=== PATIENT | male | born 1975 | race Caucasian/White ===

== ENCOUNTER 2019-08-18 12:30 | Inpatient (IN) | payer MEDICAID, OTHER ==
[~2019-08-18] VITALS: Ht 177.8 cm; Wt 138.5 kg
[2019-08-18 13:11] LABS: Urine Bacteria NONE SEEN /hpf (None Seen); Urine Blood Negative /uL (Negative); Urine Mucus FEW (None Seen); Urine Specific Gravity 1.021 (1.001-1.035); Urine WBC 1 /hpf (0 - 3)
[2019-08-18 13:31] LABS: Basophils # (auto) 0.1 uL; Basophils % (auto) 1.2 % (0.0-2.0); Eosinophils # (auto) 0.1 uL; Eosinophils % (auto) 1.5 % (0.0-7.0); Hematocrit 46.3 % (41.0-53.0); Hemoglobin 16.3 g/dL (13.5-17.5); Lymphocytes # (auto) 1.9 uL; Lymphocytes % (auto) 22.5 % (10.0-50.0); Mean Corpuscular Hemoglobin 33.3 pg (28.0-32.0); Mean Corpuscular Hgb Conc. 35.2 g/dL (32.0-36.0); Mean Corpuscular Volume 94.6 fL (80.0-100.0); Monocytes # (auto) 0.8 uL; Monocytes % (auto) 9.7 % (0.0-12.0); Neutrophils # (auto) 5.3 uL; Neutrophils % (auto) 65.1 % (37.0-80.0); Nucleated Red Blood Cells % 0.1 %; Platelet Count (auto) 197 10^3/uL (140-450); Red Blood Cells 4.89 10^6/uL (4.5-5.90); Red Cell Distribution Width 12.5 % (11.8-14.3); White Blood Cell 8.2 10^3/uL (4.4-10.8)
[2019-08-18 13:47] LABS: Albumin 3.8 g/dL (3.4-5.0); Anion Gap 5 (5-15); Blood Urea Nitrogen 12 mg/dL (7-18); Calcium 8.8 mg/dL (8.5-10.1); Carbon Dioxide 29 mmol/L (21-32); Chloride 104 mmol/L (98-107); Glucose 106 mg/dL (74-106); Potassium 3.8 mmol/L (3.5-5.1); Sodium 138 mmol/L (136-145)
[2019-08-18 13:49] LABS: Alanine Aminotransferase 32 U/L (16-61); Aspartate Aminotransferase 24 U/L (15-37); Blood Alcohol < 3.0 mg/dL (0-5); GFR African American 84 mL/min; GFR Non-African American 69 mL/min
[2019-08-18 13:52] LABS: INR 1.07 (0.9-1.15); Partial Thromboplastin Time 26.4 sec (23.64-32.05)
[2019-08-18 13:54] LABS: Alkaline Phosphatase 83 U/L (45-117); Bilirubin, Total 0.7 mg/dL (0.2-1.0); Total Protein 7.6 g/dL (6.4-8.2)
[2019-08-18] MEDS ORDERED: ASPirin 81 mg TAB PO ONE (16:00)
[2019-08-18] MEDS ORDERED: IOHEXOL 350 MG/ML 100ML IJ ONE (16:46)
[2019-08-18] MEDS ORDERED: TEMAZEPAM 15 MG CAP PO PRN (19:15)
[2019-08-18] MEDS ORDERED: NITROGLYCERIN 0.4 MG SL TAB SL PRN (19:15)
[2019-08-18] MEDS ORDERED: LACTULOSE 20Gm/30ML SOLN PO PRN (19:15)
[2019-08-18] MEDS ORDERED: PROMETHAZINE HCL 25 MG/ML 1ML IV PRN (19:15)
[2019-08-18] MEDS ORDERED: ACETAMINOPHEN 500 MG TAB PO PRN (19:15)
[2019-08-18] MEDS ORDERED: MORPHINE SULF INJ 2 MG/ML SYRINGE 1ML IV PRN (19:15)
[2019-08-18] MEDS ORDERED: traMADol HCL 50 MG TAB PO PRN (19:15)
[2019-08-18] MEDS ORDERED: THIAMINE 100mg/ml INJ (200mg/2ml VIAL) IV ONE (19:30)
[2019-08-18] MEDS ORDERED: chlordiazePOXIDE HCL 25 MG CAP PO PRN (19:30)
[2019-08-18 19:42] LABS: Alcohol, Urine < 3.0 mg/dL (0-5); Amphetamine Screen, Urine NEGATIVE (NEGATIVE); Barbiturate Scree,Urine NEGATIVE (NEGATIVE); Benzodiazephine Screen, Urine NEGATIVE (NEGATIVE); Cannabinoid Screen, Urine POSITIVE (NEGATIVE); Cocaine Screen, Urine NEGATIVE (NEGATIVE); Opiate Scree,Urine NEGATIVE (NEGATIVE); Phencyclidine Screen, Urine NEGATIVE (NEGATIVE)
[2019-08-18 19:45] VITALS: BP 140/95
[2019-08-18] MEDS: SODIUM CHLORIDE 0.9% 1,000 ML IV SCH (19:45)
[2019-08-18 22:00] VITALS: BP 140/95
[2019-08-18] MEDS: ATORVASTATIN 20 MG TAB PO SCH (22:06)
[2019-08-18] MEDS: METOPROLOL TARTRATE 25 MG TAB PO SCH (22:07)
[2019-08-19] MEDS: chlordiazePOXIDE HCL 5 MG CAP PO SCH ×5 (00:02→23:38)
[2019-08-19 06:00] VITALS: BP 125/82
[2019-08-19 07:49] LABS: Cholesterol 179 mg/dL (< 200)
[2019-08-19 07:52] LABS: HDL Cholesterol 53 mg/dL (40-59); LDL Cholesterol 119 mg/dL (< 100); Triglycerides 138 mg/dL (< 150)
[2019-08-19 08:05] VITALS: BP 140/95
[2019-08-19 09:25] VITALS: BP 127/75
[2019-08-19] MEDS: NITROGLYCERIN 0.2MG/HR TOPICAL PATCH TD SCH (10:00)
[2019-08-19] MEDS: THIAMINE 100mg/ml INJ (200mg/2ml VIAL) IV SCH (10:44)
[2019-08-19] MEDS: ASPirin 81 mg TAB PO SCH (10:45)
[2019-08-19] MEDS: PANTOPRAZOLE 40 MG TAB PO SCH (10:46)
[2019-08-19] MEDS: ENOXAPARIN SOD 40 MG/0.4 ML SYRINGE SC SCH (10:46)
[2019-08-19] MEDS: METOPROLOL TARTRATE 25 MG TAB PO SCH ×2 (10:46→21:30)
[2019-08-19] MEDS: SODIUM CHLORIDE 0.9% 1,000 ML IV SCH ×2 (10:56→23:54)
[2019-08-19 13:12] VITALS: BP 133/97
[2019-08-19 16:50] VITALS: BP 105/68
[2019-08-19] MEDS: ATORVASTATIN 20 MG TAB PO SCH (21:13)
[2019-08-19 22:00] VITALS: BP 141/81
[2019-08-20] VITALS (7 sets, daily range): BP systolic 122–142; BP diastolic 67–93
[2019-08-20] MEDS: chlordiazePOXIDE HCL 5 MG CAP PO SCH ×3 (05:24→18:23)
[2019-08-20] MEDS ORDERED: ADENOSINE IV STA (08:15)
[2019-08-20] MEDS ORDERED: GIVE UN DILUTED IV STA (08:15)
[2019-08-20] MEDS: THIAMINE 100mg/ml INJ (200mg/2ml VIAL) IV SCH (12:26)
[2019-08-20] MEDS: METOPROLOL TARTRATE 25 MG TAB PO SCH ×2 (12:27→22:06)
[2019-08-20] MEDS: ENOXAPARIN SOD 40 MG/0.4 ML SYRINGE SC SCH (12:27)
[2019-08-20] MEDS: ASPirin 81 mg TAB PO SCH (12:27)
[2019-08-20] MEDS: NITROGLYCERIN 0.2MG/HR TOPICAL PATCH TD SCH (12:28)
[2019-08-20] MEDS: PANTOPRAZOLE 40 MG TAB PO SCH (12:28)
[2019-08-20] MEDS: SODIUM CHLORIDE 0.9% 1,000 ML IV SCH (16:25)
[2019-08-20] MEDS: ATORVASTATIN 20 MG TAB PO SCH (22:06)
[2019-08-21] MEDS: chlordiazePOXIDE HCL 5 MG CAP PO SCH ×5 (00:03→23:58)
[2019-08-21] MEDS: SODIUM CHLORIDE 0.9% 1,000 ML IV SCH (04:10)
[2019-08-21 05:48] VITALS: BP 125/64
[2019-08-21 06:29] LABS: Basophils # (auto) 0 uL; Basophils % (auto) 0.4 % (0.0-2.0); Eosinophils # (auto) 0.1 uL; Eosinophils % (auto) 1.8 % (0.0-7.0); Hematocrit 41.6 % (41.0-53.0); Hemoglobin 14.8 g/dL (13.5-17.5); Lymphocytes # (auto) 1.6 uL; Lymphocytes % (auto) 20.5 % (10.0-50.0); Mean Corpuscular Hemoglobin 33.6 pg (28.0-32.0); Mean Corpuscular Hgb Conc. 35.7 g/dL (32.0-36.0); Mean Corpuscular Volume 94.2 fL (80.0-100.0); Monocytes # (auto) 0.8 uL; Monocytes % (auto) 10.2 % (0.0-12.0); Neutrophils # (auto) 5.2 uL; Neutrophils % (auto) 67.1 % (37.0-80.0); Nucleated Red Blood Cells % 0.1 %; Platelet Count (auto) 167 10^3/uL (140-450); Red Blood Cells 4.41 10^6/uL (4.5-5.90); Red Cell Distribution Width 12.6 % (11.8-14.3); White Blood Cell 7.7 10^3/uL (4.4-10.8)
[2019-08-21 06:42] LABS: INR 1.05 (0.9-1.15); Partial Thromboplastin Time 26.8 sec (23.64-32.05)
[2019-08-21 06:48] LABS: Calcium 8.2 mg/dL (8.5-10.1); Potassium 3.6 mmol/L (3.5-5.1)
[2019-08-21 06:51] LABS: BUN/Creatinine Ratio 10.8
[2019-08-21 08:00] VITALS: BP 146/80
[2019-08-21] MEDS: ENOXAPARIN SOD 40 MG/0.4 ML SYRINGE SC SCH (10:00)
[2019-08-21] MEDS: NITROGLYCERIN 0.2MG/HR TOPICAL PATCH TD SCH (10:00)
[2019-08-21] MEDS ORDERED: fentaNYL CITRATE 100 MCG/2 ML VL ONE (11:20)
[2019-08-21] MEDS ORDERED: MIDAZOLAM HCL 1MG/1ML-2 ML VIAL ONE (11:20)
[2019-08-21] MEDS ORDERED: SODIUM CHL 0.9% 0 ML ONE ×2 (11:20→14:28)
[2019-08-21] MEDS ORDERED: ANGIOMAX 250 MG VIAL IV ONE ×2 (11:20→14:27)
[2019-08-21] MEDS ORDERED: VERAPAMIL 2.5MG/ML INJ 2ML VIAL IV ONE (11:20)
[2019-08-21] MEDS ORDERED: LIDOCAINE 2%HCL (LOCAL ANESTH.) INJ 20ML MDV ONE (11:43)
[2019-08-21] MEDS ORDERED: IOHEXOL 350 MG/ML 100ML IJ ONE (11:43)
[2019-08-21 17:00] VITALS: BP 130/92
[2019-08-21] MEDS: ASPirin 81 mg TAB PO SCH (17:16)
[2019-08-21] MEDS: PANTOPRAZOLE 40 MG TAB PO SCH (17:16)
[2019-08-21] MEDS: METOPROLOL TARTRATE 25 MG TAB PO SCH ×2 (17:17→21:50)
[2019-08-21] MEDS: THIAMINE 100mg/ml INJ (200mg/2ml VIAL) IV SCH (17:17)
[2019-08-21 20:00] VITALS: BP 122/81
[2019-08-21 21:42] VITALS: BP 122/81
[2019-08-21] MEDS: ATORVASTATIN 20 MG TAB PO SCH (21:47)
[2019-08-22] MEDS: SODIUM CHLORIDE 0.9% 1,000 ML IV SCH (01:31)
[2019-08-22 05:35] VITALS: BP 126/82
[2019-08-22] MEDS: chlordiazePOXIDE HCL 5 MG CAP PO SCH ×2 (06:00→12:00)
[2019-08-22 08:00] VITALS: BP 126/70
[2019-08-22 09:00] VITALS: BP 126/70
[2019-08-22] MEDS: THIAMINE 100mg/ml INJ (200mg/2ml VIAL) IV SCH (09:36)
[2019-08-22] MEDS: METOPROLOL TARTRATE 25 MG TAB PO SCH (09:37)
[2019-08-22] MEDS: PANTOPRAZOLE 40 MG TAB PO SCH (09:37)
[2019-08-22] MEDS: NITROGLYCERIN 0.2MG/HR TOPICAL PATCH TD SCH (09:37)
[2019-08-22] MEDS: ASPirin 81 mg TAB PO SCH (09:37)
== END 2019-08-22 14:40 | disposition home or self-care (01) | DRG 192 ==
LOC: ER 12:50 → TELE 12:51 → TELE-EAST 19:50
PROVIDERS: ADMIT Internal Medicine; ATTEND Internal Medicine
PROC: 4A023N7 Measurement of Cardiac Sampling and Pressure, Left Heart, Percutaneous Approach (ICD-10-PCS; principal; 2019-08-21)
PROC: B2111ZZ Fluoroscopy of Multiple Coronary Arteries using Low Osmolar Contrast (ICD-10-PCS; 2019-08-21)
PROC: B2151ZZ Fluoroscopy of Left Heart using Low Osmolar Contrast (ICD-10-PCS; 2019-08-21)
DX: R07.89 Other chest pain (principal); I31.3 Pericardial effusion (noninflammatory); I11.9 Hypertensive heart disease without heart failure; E66.9 Obesity, unspecified; K29.70 Gastritis, unspecified, without bleeding; R94.39 Abnormal result of other cardiovascular function study; F12.90 Cannabis use, unspecified, uncomplicated; Z82.49 Family history of ischemic heart disease and other diseases of the circulatory system; Z87.891 Personal history of nicotine dependence; Z88.0 Allergy status to penicillin
CPT/HCPCS: 36415; 71046; 71275; 78452; 80048; 80053; 80061; 80307; 80320; 81001; 82550; 83735; 83880; 84484; 85025; 85379; 85610; 85652; 85730; 86141; 93005; 93017; 93306; 93458; 99152; C1769; G0378; J0153; J2250

== ENCOUNTER 2019-09-18 04:43 | Emergency (ER) | payer MEDICAID ==
[~2019-09-18] VITALS: Ht 177.8 cm; Wt 108.5 kg
[2019-09-18 06:51] VITALS: BP 140/87
[2019-09-18] MEDS ORDERED: LORATADINE 10 MG TAB PO ONE (07:00)
[2019-09-18] MEDS ORDERED: methylPREDNISolone SOD SUCC 125 MG/2 ML VL IM ONE (07:00)
== END 2019-09-18 07:22 | disposition home or self-care (01) ==
LOC: ER 04:45
DX: L30.9 Dermatitis, unspecified (principal); F12.10 Cannabis abuse, uncomplicated; Z87.891 Personal history of nicotine dependence; Z88.0 Allergy status to penicillin
CPT/HCPCS: 96372; 99283; J2930

== ENCOUNTER 2019-11-11 04:09 | Emergency (ER) | payer MEDICAID ==
[~2019-11-11] VITALS: Ht 177.8 cm; Wt 104.3 kg
[2019-11-11 08:33] VITALS: BP 126/76
== END 2019-11-11 08:57 | disposition home or self-care (01) ==
LOC: ER 04:09
DX: R21 Rash and other nonspecific skin eruption (principal); Z88.0 Allergy status to penicillin

== ENCOUNTER 2022-04-07 04:52 | Emergency (ER) | payer MEDICAID ==
[~2022-04-07] VITALS: Ht 177.8 cm; Wt 113.4 kg
[2022-04-07 05:25] LABS: Basophils # (auto) 0.1 10 ^3/uL (0-0.2); Basophils % (auto) 0.8 % (0.0-2.0); Eosinophils # (auto) 0.2 10 ^3/uL (0-0.8); Eosinophils % (auto) 2.1 % (0.0-7.0); Hematocrit 45.7 % (41.0-53.0); Hemoglobin 15.7 g/dL (13.5-17.5); Lymphocytes # (auto) 2.2 10 ^3/uL (0.4-5.4); Lymphocytes % (auto) 27.3 % (10.0-50.0); Mean Corpuscular Hemoglobin 32.5 pg (28.0-32.0); Mean Corpuscular Hgb Conc. 34.4 g/dL (32.0-36.0); Mean Corpuscular Volume 94.5 fL (80.0-100.0); Monocytes # (auto) 0.8 10 ^3/uL (0-1.3); Monocytes % (auto) 10.3 % (0.0-12.0); Neutrophils # (auto) 4.9 10 ^3/uL (1.6-8.6); Neutrophils % (auto) 59.5 % (37.0-80.0); Nucleated Red Blood Cells % 0.1 %; Red Blood Cells 4.84 10^6/uL (4.5-5.90); Red Cell Distribution Width 13.4 % (11.8-14.3); White Blood Cell 8.2 10^3/uL (4.4-10.8)
[2022-04-07 05:43] LABS: Albumin 3.8 g/dL (3.4-5.0); Calcium 8.7 mg/dL (8.5-10.1); Potassium 3.6 mmol/L (3.5-5.1)
[2022-04-07 05:49] LABS: BUN/Creatinine Ratio 10.6; Bilirubin, Total 0.5 mg/dL (0.2-1.0); Total Protein 7.5 g/dL (6.4-8.2)
[2022-04-07 10:22] VITALS: BP 145/91
== END 2022-04-07 10:24 | disposition home or self-care (01) ==
LOC: ER 04:52
DX: R07.89 Other chest pain (principal); Z87.891 Personal history of nicotine dependence; Z88.0 Allergy status to penicillin; Z20.822 Contact with and (suspected) exposure to COVID-19
CPT/HCPCS: 36415; 71045; 80053; 83880; 84484; 85025; 93005

== ENCOUNTER → 2022-12-09 | Outpatient (CLI) | payer MEDICAID | END | disposition home or self-care (01) | LOC: LAB 10:03 | PROVIDERS: ATTEND Urology | DX: N52.9 Male erectile dysfunction, unspecified (principal) | CPT/HCPCS: 36415; 84153; 84403 ==